=== PATIENT | male | born 1940 | race Caucasian/White ===

== ENCOUNTER 2019-08-22 13:42 | Inpatient (IN) | payer MEDICARE, MEDICAID ==
[~2019-08-22] VITALS: Ht 165.1 cm; Wt 72.2 kg
[2019-08-22] MEDS ORDERED: CLIN300C3 PO (14:02)
[2019-08-22] MEDS ORDERED: TRAZ-257 PO (14:02)
[2019-08-22] MEDS ORDERED: LEVO100 PO (14:02)
[2019-08-22] MEDS ORDERED: ASPI81TA39 PO (14:02)
[2019-08-22] MEDS ORDERED: LISI-660 PO (14:02)
[2019-08-22] MEDS ORDERED: ATOR20TA86 PO (14:02)
[2019-08-22] MEDS ORDERED: TAMS-13 PO (14:02)
[2019-08-22] MEDS ORDERED: BENZ-51 PO (14:02)
[2019-08-22] MEDS ORDERED: AMLO10TA7 PO (14:02)
[2019-08-22 14:06] LABS: GLUCOSE,POINT OF CARE 98 MG/DL (70-110)
[2019-08-22 14:36] LABS: BASOPHILS % (AUTO) 0.8 % (0.0-2.0); EOSINOPHILS % (AUTO) 2.9 % (1.0-6.0); HEMATOCRIT 33.7 % (41-53); HEMOGLOBIN 11.5 g/dL (13.5-17.5); LYMPHOCYTES # (AUTO) 1.7 K/uL (1.0-4.8); LYMPHOCYTES % (AUTO) 33.2 % (22.0-44.0); MEAN CORPUSCULAR HEMOGLOBIN 32.7 pg (26.0-34.0); MEAN CORPUSCULAR HGB CONC 34.3 G/dL (31.0-37.0); MEAN CORPUSCULAR VOLUME 96 fL (80-100); MONOCYTES # (AUTO) 0.3 K/uL (0.1-1.0); MONOCYTES % (AUTO) 6.7 % (2.0-9.0); NEUTROPHILS # (AUTO) 2.9 K/uL (1.8-7.7); NEUTROPHILS % (AUTO) 56.4 % (40.0-70.0); PLATELET COUNT (AUTO) 179 K/uL (150-450); RED BLOOD CELL COUNT(AUTO) 3.53 MIL/uL (4.50-5.90); RED CELL DISTRIBUTION WIDTH 13.6 % (11.5-14.5)
[2019-08-22 14:52] LABS: CALCIUM, TOTAL 9.2 mg/dL (8.8-10.5); CREATININE 1.61 mg/dL (0.60-1.30); POTASSIUM 3.4 mmol/L (3.5-5.1)
[2019-08-22] MEDS ORDERED: ASPIRIN 81 MG CHEWABLE TABLET PO ONE (15:00)
[2019-08-22] MEDS ORDERED: ACETAMINOPHEN 325 MG TABLET PO PRN (15:15)
[2019-08-22] MEDS ORDERED: ONDANSETRON HCL 4 MG/2 ML VIAL IVP PRN (15:15)
[2019-08-22] MEDS ORDERED: INFLUENZA VIRUS VACCINE QVS 2019-20 (3YR+)/PF 60 MCG/0.5 ML SYRINGE IM ONE (22:00)
[2019-08-22] MEDS ORDERED: PNEUMOCOCCAL VACCINE POLYVALENT 0.5 ML VIAL [PPSV23] IM ONE (22:00)
[2019-08-22] MEDS: TraZODone HCL 100 MG TABLET PO SCH (22:45)
[2019-08-22] MEDS ORDERED: POTASSIUM CHLORIDE 20 MEQ ER TABLET PO ONE (22:45)
[2019-08-23 00:05] VITALS: BP 126/64
[2019-08-23] MEDS ORDERED: ONDANSETRON HCL 4 MG/2 ML VIAL IVP PRN (02:30)
[2019-08-23] MEDS ORDERED: ACETAMINOPHEN 325 MG TABLET PO PRN (02:30)
[2019-08-23] MEDS ORDERED: MAGNESIUM HYDROXIDE SUSPENSION 30 ML UDCUP PO PRN (02:30)
[2019-08-23] MEDS ORDERED: 0.9% SODIUM CHLORIDE 10 ML SYRINGE IVP PRN (02:30)
[2019-08-23] MEDS ORDERED: OxyCODONE HCL/ACETAMINOPHEN 5-325 MG TABLET PO PRN ×2 (02:30)
[2019-08-23] MEDS ORDERED: POTASSIUM CHLORIDE 20 MEQ ER TABLET PO PRN (02:30)
[2019-08-23] MEDS ORDERED: POTASSIUM CHL 10 MEQ/WATER 50 ML IV PRN (02:30)
[2019-08-23] MEDS: SODIUM CHLORIDE 0.9% 1,000 ML IV SCH ×3 (03:06→22:30)
[2019-08-23 04:15] VITALS: BP 125/59
[2019-08-23] MEDS: LEVOTHYROXINE SODIUM 100 MCG TABLET PO SCH (05:48)
[2019-08-23 07:02] LABS: CALCIUM, TOTAL 8.8 mg/dL (8.8-10.5); CREATININE 1.34 mg/dL (0.60-1.30); POTASSIUM 3.7 mmol/L (3.5-5.1)
[2019-08-23 07:23] VITALS: BP 132/77
[2019-08-23] MEDS ORDERED: ASPIRIN 81 MG CHEWABLE TABLET PO SCH (09:00)
[2019-08-23] MEDS ORDERED: DEXTROSE 50%-WATER 25 GM/50 ML SYRINGE IVP PRN (09:30)
[2019-08-23] MEDS ORDERED: INSULIN LISPRO 100 UNITS/ML SQ PRN (09:30)
[2019-08-23] MEDS: FAMOTIDINE 10 MG/ML 2 ML VIAL IVP SCH ×2 (09:42→12:22)
[2019-08-23] MEDS: DOCUSATE SODIUM 100 MG CAPSULE PO SCH ×2 (09:43→21:18)
[2019-08-23] MEDS: TAMSULOSIN HCL 0.4 MG CAPSULE PO SCH (09:43)
[2019-08-23] MEDS: ASPIRIN 325 MG TABLET PO SCH (09:43)
[2019-08-23] MEDS: LISINOPRIL 5 MG TABLET PO SCH (09:44)
[2019-08-23] MEDS: BENZONATATE 100 MG CAPSULE PO SCH ×3 (09:44→21:18)
[2019-08-23] MEDS: ATORVASTATIN CALCIUM 20 MG TABLET PO SCH (09:44)
[2019-08-23] MEDS: AmLODIPine BESYLATE 10 MG TABLET PO SCH (09:44)
[2019-08-23] MEDS ORDERED: GADOBUTROL 1 MMOL/ML 10 ML VIAL IVP ONE (11:26)
[2019-08-23 12:03] LABS: GLUCOMETER DEV NAME(LOC) 5S.2A; GLUCOSE,POINT OF CARE 119 MG/DL (70-110)
[2019-08-23 16:30] VITALS: BP 139/66
[2019-08-23 20:02] VITALS: BP 131/61
[2019-08-23] MEDS: TraZODone HCL 100 MG TABLET PO SCH (21:19)
[2019-08-24 00:05] VITALS: BP 94/47
[2019-08-24 05:09] VITALS: BP 97/49
[2019-08-24] MEDS: LEVOTHYROXINE SODIUM 100 MCG TABLET PO SCH (05:56)
[2019-08-24 07:14] LABS: EOSINOPHILS % (AUTO) 3.3 % (1.0-6.0); HEMATOCRIT 29.2 % (41-53); HEMOGLOBIN 10.3 g/dL (13.5-17.5); LYMPHOCYTES # (AUTO) 1.4 K/uL (1.0-4.8); LYMPHOCYTES % (AUTO) 33.8 % (22.0-44.0); MEAN CORPUSCULAR HEMOGLOBIN 33.7 pg (26.0-34.0); MEAN CORPUSCULAR HGB CONC 35.3 G/dL (31.0-37.0); MEAN CORPUSCULAR VOLUME 96 fL (80-100); MONOCYTES # (AUTO) 0.3 K/uL (0.1-1.0); MONOCYTES % (AUTO) 6.8 % (2.0-9.0); NEUTROPHILS # (AUTO) 2.3 K/uL (1.8-7.7); NEUTROPHILS % (AUTO) 55.1 % (40.0-70.0); PLATELET COUNT (AUTO) 168 K/uL (150-450); RED BLOOD CELL COUNT(AUTO) 3.05 MIL/uL (4.50-5.90); RED CELL DISTRIBUTION WIDTH 13.4 % (11.5-14.5)
[2019-08-24 07:25] LABS: HEMOGLOBIN A1C 6.1 % (4.5-6.2)
[2019-08-24 07:59] LABS: CALCIUM, TOTAL 8.7 mg/dL (8.8-10.5); CREATININE 1.57 mg/dL (0.60-1.30); POTASSIUM 3.8 mmol/L (3.5-5.1)
[2019-08-24 08:00] LABS: CHOL/HDL RATIO 3.1 (4.2-7.3)
[2019-08-24 08:07] VITALS: BP 109/52
[2019-08-24 08:24] VITALS: BP 124/58
[2019-08-24] MEDS: TAMSULOSIN HCL 0.4 MG CAPSULE PO SCH (08:33)
[2019-08-24] MEDS: ASPIRIN 325 MG TABLET PO SCH (08:33)
[2019-08-24] MEDS: FAMOTIDINE 10 MG/ML 2 ML VIAL IVP SCH (08:33)
[2019-08-24] MEDS: ATORVASTATIN CALCIUM 20 MG TABLET PO SCH (08:33)
[2019-08-24] MEDS: DOCUSATE SODIUM 100 MG CAPSULE PO SCH ×2 (08:33→20:21)
[2019-08-24] MEDS: BENZONATATE 100 MG CAPSULE PO SCH ×3 (08:34→20:21)
[2019-08-24] MEDS: LISINOPRIL 5 MG TABLET PO SCH (08:34)
[2019-08-24 08:50] LABS: THYROID STIMULATING HORMONE 110.04 uIU/mL (0.36-3.74)
[2019-08-24 11:51] VITALS: BP 123/63
[2019-08-24] MEDS: AmLODIPine BESYLATE 10 MG TABLET PO SCH (12:43)
[2019-08-24] MEDS ORDERED: ATOR20TA86 PO (15:27)
[2019-08-24] MEDS ORDERED: LISI-660 PO (15:27)
[2019-08-24] MEDS ORDERED: LEVO100 PO (15:27)
[2019-08-24] MEDS ORDERED: AMLO10TA7 PO (15:27)
[2019-08-24] MEDS ORDERED: TAMS-13 PO (15:27)
[2019-08-24] MEDS ORDERED: ASPI-1484 PO (15:27)
[2019-08-24 16:15] VITALS: BP 114/56
[2019-08-24] MEDS: TraZODone HCL 100 MG TABLET PO SCH (20:22)
[2019-08-25] VITALS: BP 109/58
[2019-08-25 05:04] VITALS: BP 110/64
[2019-08-25 06:08] LABS: GLUCOMETER DEV NAME(LOC) 5S.2A; GLUCOSE,POINT OF CARE 99 MG/DL (70-110)
[2019-08-25 06:08] LABS: GLUCOMETER DEV NAME(LOC) 5S.2A; GLUCOSE,POINT OF CARE 92 MG/DL (70-110)
[2019-08-25 06:09] LABS: GLUCOMETER DEV NAME(LOC) 5S.2A; GLUCOSE,POINT OF CARE 151 MG/DL (70-110)
[2019-08-25] MEDS: LEVOTHYROXINE SODIUM 100 MCG TABLET PO SCH (06:34)
[2019-08-25 07:54] VITALS: BP 131/75
[2019-08-25] MEDS: TAMSULOSIN HCL 0.4 MG CAPSULE PO SCH (09:32)
[2019-08-25] MEDS: LISINOPRIL 5 MG TABLET PO SCH (09:32)
[2019-08-25] MEDS: ATORVASTATIN CALCIUM 20 MG TABLET PO SCH (09:32)
[2019-08-25] MEDS: FAMOTIDINE 10 MG/ML 2 ML VIAL IVP SCH (09:32)
[2019-08-25] MEDS: DOCUSATE SODIUM 100 MG CAPSULE PO SCH (09:32)
[2019-08-25] MEDS: AmLODIPine BESYLATE 10 MG TABLET PO SCH (09:32)
[2019-08-25] MEDS: BENZONATATE 100 MG CAPSULE PO SCH (09:32)
[2019-08-25] MEDS: ASPIRIN 325 MG TABLET PO SCH (09:32)
[2019-08-25 18:15] LABS: GLUCOMETER DEV NAME(LOC) 5S.1; GLUCOSE,POINT OF CARE 98 MG/DL (70-110)
== END 2019-08-25 14:05 | disposition home or self-care (01) | DRG 69 ==
LOC: EMS 13:43 → 5S 19:05
PROVIDERS: ADMIT Internal Medicine; ATTEND Internal Medicine
DX: G45.9 Transient cerebral ischemic attack, unspecified (principal); J98.11 Atelectasis; I31.3 Pericardial effusion (noninflammatory); E11.22 Type 2 diabetes mellitus with diabetic chronic kidney disease; I12.9 Hypertensive chronic kidney disease with stage 1 through stage 4 chronic kidney disease, or unspecified chronic kidney disease; N18.2 Chronic kidney disease, stage 2 (mild); E87.6 Hypokalemia; E78.00 Pure hypercholesterolemia, unspecified; E03.9 Hypothyroidism, unspecified; E78.5 Hyperlipidemia, unspecified; Z98.890 Other specified postprocedural states; Z79.82 Long term (current) use of aspirin; Z79.899 Other long term (current) drug therapy; Z28.21 Immunization not carried out because of patient refusal
CPT/HCPCS: 70450; 70544; 70549; 70551; 83036; 84443; 93005; 93306; 97116; 97162; 97165; 97530; 97535; A9585; J2405; J3490; J7030